=== PATIENT | female | born 1950 | race African-American/Black ===

== ENCOUNTER 2017-09-18 00:06 | Emergency (ER) | payer OTHER ==
[2017-09-18 00:29] VITALS: BMI 20.5
--- NOTE | 2017-09-18 01:08 | PDOC ---
History of Present Illness - General Chief Complaint: Headache Stated Complaint: HEADACHE Time Seen by Provider: 09/18/17 00:50 History Source: Patient Exam Limitations: No Limitations - History of Present Illness Initial Comments: 09/18/17 02:21 66F with pmh of Arnold-Chiari malformation, hemorrhagic stroke s/p craniotomy ( with cranial bones replacement 2 months ago) , LLE DVT presents with Generalized headache since friday which started as neck pain the past month. 09/18/17 02:52 Past History - Past Medical History Allergies/Adverse Reactions: Allergies Allergy/AdvReac Type Severity Reaction Status Date / Time acetaminophen [From Percocet] Allergy Verified 09/18/17 00:32 aspirin Allergy Verified 09/18/17 00:32 oxycodone [From Percocet] Allergy Verified 09/18/17 00:32 shellfish derived Allergy Verified 09/18/17 00:32 morphine AdvReac Rash Verified 09/18/17 05:19 eggs Allergy Uncoded 09/18/17 00:32 peanuts Allergy Uncoded 09/18/17 00:32 Home Medications: Ambulatory Orders NK [No Known Home Medication] 09/18/17 - Suicide/Smoking/Psychosocial Hx Smoking History: Unknown if ever smoked Have you smoked in the past 12 months: No Information on smoking cessation initiated: No Hx Alcohol Use: No Drug/Substance Use Hx: No Review of Systems - Review of Systems Able to Perform ROS?: Yes Is the patient limited Tajik proficient: No Constitutional: No: Symptoms Reported HEENTM: No: Symptoms Reported Respiratory: No: Symptoms reported Cardiac (ROS): No: Symptoms Reported ABD/GI: No: Symptoms Reported : No: Symptoms Reported Musculoskeletal: No: Symptoms Reported Integumentary: No: Symptoms Reported Neurological: Yes: Headache, Pre-Existing Deficit (left sided paralysis) Endocrine: No: Symptoms Reported All Other Systems: Reviewed and Negative *Physical Exam - Vital Signs Last Vital Signs Temp Pulse Resp BP Pulse Ox 87 14 133/82 100 09/18/17 00:26 09/18/17 00:26 09/18/17 00:26 09/18/17 00:26 - Physical Exam General Appearance: Yes: Nourished, Appropriately Dressed, Apparent Distress HEENT: positive: EOMI, REMIGIO, Normal ENT Inspection Neck: negative: Tender Respiratory/Chest: positive: Lungs Clear, Normal Breath Sounds. negative: Chest Tender, Respiratory Distress Cardiovascular: positive: Regular Rhythm, Regular Rate, S1, S2 Gastrointestinal/Abdominal: positive: Normal Bowel Sounds, Flat, Soft. negative : Tender Musculoskeletal: positive: Normal Inspection. 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, Fully Oriented, Alert, Normal Mood/ Affect ED Treatment Course - LABORATORY CBC & Chemistry Diagram: 09/18/17 01:14 09/18/17 01:14 - RADIOLOGY Radiology Studies Ordered: Category Date Time Status HEAD CT WITHOUT CONTRAST [CT] Stat CT Scan 09/18/17 01:04 Ordered CHEST X-RAY PORTABLE* [RAD] Stat Radiology 09/18/17 01:05 Ordered DUPLEX VASCUL US-2LEGS [US] Stat Ultrasound 09/18/17 01:05 Ordered Medical Decision Making - Medical Decision Making 09/18/17 06:13 66F with pmh of Arnold-Chiari malformation, hemorrhagic stroke s/p craniotomy ( with cranial bones replacement 2 months ago) , LLE DVT presents with Generalized headache since friday which started as neck pain the past month. Leg Duplex negative for DVT CT head: 5.3cm mass-like density in right frontotemporal region with surrounding encephalomalacia, correlate with MRI. Volume loss from the encephalomalacia causes minimal chronic rightward midline shift, but the mass slightly effaces frontal horn of right lateral ventricle. Right cranioplasty with underlying dural thickening/calcification. Probable small scattered parenchymal calcifications. Pain controlled with morphine. All basic labs WNL. Consulted with [facility] who knows the patient. Patient transferred to [facility]. 09/18/17 06:32 09/18/17 06:44 *DC/Admit/Observation/Transfer Diagnosis at time of Disposition: Headache - Discharge Dispostion Disposition: TRANSFER ACUTE CARE/OTHER HOSP Admit: No - Referrals Referrals: Maicol Raymundo [Primary Care Provider] - - Patient Instructions - Post Discharge Activity - Transfer to Acute Care Facility Receiving Facility: [facility]
--- NOTE | 2017-09-18 01:18 | PDOC ---
Attending Attestation - HPI HPI: 09/18/17 02:33 The patient is a 66 year old female, with a significant past medical history of Arnold-Chiari malformation, hemorrhagic stroke s/p craniotomy (with cranial bones replacement 2 months ago) , LLE DVT , who presents to the emergency department with a diffuse, constant headache for 5 days. She states she has not experienced a headache this severe in the past. She reports the headache is 10/ 10. Secondarily, she reports left lower extremity pain and states she had a DVT in the same leg [address] [facility]. She denies recent prolonged travels. She denies chest pain, shortness of breath, and dizziness. She denies fever, chills, nausea, vomit, diarrhea and constipation. She denies dysuria, frequency , urgency and hematuria. Allergies: acetominophen, aspirin, oxycodone 09/18/17 02:33 Documentation prepared by Linda George, acting as medical technologist microbiology for Ron Shah DO <Linda George - Last Filed: 09/18/17 02:50> - Resident Resident Name: Gregg Klein - ED Attending Attestation I have performed the following: I have examined & evaluated the patient, The case was reviewed & discussed with the resident, I agree w/resident's findings & plan, Exceptions are as noted - Medical Decision Making 09/18/17 19:41 Pt transfer for neurosurgical evaluation and possible treatment to [facility]. <Ron Shah - Last Filed: 09/18/17 19:42>
[2017-09-18 01:26] LABS: BASO % 0.8 % (0-2.0); EOS % 1.3 % (0-4.5); HEMATOCRIT 39.1 % (32.4-45.2); HEMOGLOBIN 12.5 GM/dL (10.7-15.3); LYMPH % 21.8 % (8-40); MCH 27.5 pg (25.7-33.7); MCHC 31.9 g/dl (32.0-36.0); MEAN CELL VOLUME 86.2 fl (80-96); MEAN PLT VOLUME 8.8 fl (7.5-11.1); MONO % 7.3 % (3.8-10.2); NEUT % 68.8 % (42.8-82.8); PLATELET COUNT 401 K/MM3 (134-434); RBC 4.54 M/mm3 (3.60-5.2); RDW 16.3 % (11.6-15.6); WHITE BLOOD COUNT 8.7 K/mm3 (4.0-10.0)
[2017-09-18 01:39] LABS: INR 1.53 (0.82-1.09); PROTHROMBIN TIME (PATIENT) 17.3 SEC (9.98-11.88)
[2017-09-18 01:42] LABS: ACTIVATED PTT 44.8 SECONDS (26.9-34.4)
[2017-09-18 01:51] LABS: ALBUMIN 3.9 g/dl (3.4-5.0); ALK PHOS 102 U/L (45-117); ANION GAP 11 (8-16); BILIRUBIN,TOTAL 0.3 mg/dL (0.2-1.0); BLOOD UREA NITROGEN 20 mg/dL (7-18); CALCIUM 9.5 mg/dL (8.5-10.1); CHLORIDE 109 mmol/L (98-107); CO2 23 mmol/L (21-32); CREATININE 1.1 mg/dL (0.55-1.02); GLUCOSE,RANDOM 124 mg/dL (74-106); POTASSIUM 3.9 mmol/L (3.5-5.1); SGOT/AST 8 U/L (15-37); SGPT/ALT 14 U/L (12-78); SODIUM 143 mmol/L (136-145); TOT PROT 7.4 g/dl (6.4-8.2)
[2017-09-18] MEDS ORDERED: morphine CARPU-JECT 4 MG/1 ML DISP.SYRIN IVPUSH ONE (03:15)
[2017-09-18] MEDS ORDERED: ONDANSETRON 4 MG/2 ML VIAL IVPUSH ONE (03:16)
[2017-09-18] MEDS ORDERED: morphine CARPU-JECT 10 MG/1 ML DISP.SYRIN ONE (04:06)
[2017-09-18] MEDS ORDERED: ONDANSETRON 4 MG/2 ML VIAL ONE (04:06)
[2017-09-18 07:57] VITALS: BP 118/74; PULSE 99; TEMP 98
[2017-09-18] MEDS ORDERED: METOCLOPRAMIDE HCL INJECTION 10 MG/2 ML VIAL IVPUSH ONE (08:32)
[2017-09-18] MEDS ORDERED: METOCLOPRAMIDE HCL INJECTION 10 MG/2 ML VIAL ONE (08:39)
== END 2017-09-18 10:07 | disposition short-term general hospital (02) ==
LOC: JER 00:06
PROC: 3E033NZ Introduction of Analgesics, Hypnotics, Sedatives into Peripheral Vein, Percutaneous Approach (ICD-10-PCS; principal; 2017-09-18)
PROC: 3E033GC Introduction of Other Therapeutic Substance into Peripheral Vein, Percutaneous Approach (ICD-10-PCS; 2017-09-18)
PROC: 3E033GC Introduction of Other Therapeutic Substance into Peripheral Vein, Percutaneous Approach (ICD-10-PCS; 2017-09-18)
PROC: 3E033GC Introduction of Other Therapeutic Substance into Peripheral Vein, Percutaneous Approach (ICD-10-PCS; 2017-09-18)
DX: G93.89 Other specified disorders of brain (principal)
CPT/HCPCS: 36415; 70450-TC; 71045-TC; 80053; 85025; 85610; 85730; 86850; 86900; 86901; 93970-TC; 99282-25

== ENCOUNTER 2018-02-16 23:17 | Emergency (ER) | payer OTHER ==
[2018-02-17 00:09] VITALS: BP 121/75; PULSE 84; TEMP 97.7; BMI 17.4
--- NOTE | 2018-02-17 01:02 | PDOC ---
History of Present Illness - General Chief Complaint: Psychiatric Stated Complaint: ANXIETY Time Seen by Provider: 02/17/18 00:20 History Source: Patient Exam Limitations: No Limitations - History of Present Illness Initial Comments: This is a 67 YOF with h/o Arnold-Chiari malformation, hemorrhagic stroke s/p craniotomy w/ cranial bone replacement in the end of 2016 with residual left- sided weakness, LLE DVT diagnosed also in the end of 2016, Xarelto use ( decreased from 20 to 10 mg/day about 2 months ago), paroxysmal A-fib, SLE, and chronic bronchitis who p/w a 20 minute episode of SOB which began at about 9:40 pm tonight while she was at rest watching TV and resolved spontaneously. She notes some mild palpitations during the episode similar to her prior episodes of A-fib. The patient notes a few prior episodes of similar SOB, but these have always been milder and resolved much more quickly then tonight. She tried her Albuterol nebulizer treatment at home without relief. She denies any chest pain , abdominal pain, new back pain, new headache, new neck pain, abdominal pain, dizziness, or change in her baseline focal numbness/tingling/weakness. Past History - Past Medical History Allergies/Adverse Reactions: Allergies Allergy/AdvReac Type Severity Reaction Status Date / Time acetaminophen [From Percocet] Allergy Verified 02/17/18 00:09 aspirin Allergy Verified 02/17/18 00:09 oxycodone [From Percocet] Allergy Verified 02/17/18 00:09 shellfish derived Allergy Verified 02/17/18 00:09 morphine AdvReac Rash Verified 02/17/18 00:09 eggs Allergy Uncoded 02/17/18 00:09 peanuts Allergy Uncoded 02/17/18 00:09 Home Medications: Ambulatory Orders Atorvastatin Calcium [Lipitor] 10 mg PO HS 02/17/18 Famotidine [Pepcid] 20 mg PO BID 02/17/18 Gabapentin 800 mg PO BID 02/17/18 Oxycodone HCl/Acetaminophen [Percocet 10-325 mg Tablet] 1 each PO PRN PRN Rivaroxaban [Xarelto -] 10 mg PO DAILY 02/17/18 CVA: Yes (Last Year Left side of body affected) COPD: No - Immunization History Immunization Up to Date: Yes - Suicide/Smoking/Psychosocial Hx Smoking History: Never smoked Have you smoked in the past 12 months: No Information on smoking cessation initiated: No Hx Alcohol Use: No Drug/Substance Use Hx: No Review of Systems - Review of Systems Able to Perform ROS?: Yes Constitutional: No: Chills, Fever, Unexplained wgt Loss HEENTM: No: Nose Congestion, Throat Pain Respiratory: Yes: Shortness of Breath. No: Cough Cardiac (ROS): Yes: Palpitations. No: Chest Pain ABD/GI: No: Constipated, Diarrhea, Nausea, Vomiting : No: Burning, Dysuria Musculoskeletal: No: Back Pain, Neck Pain Integumentary: No: Bruising, Rash Neurological: No: Headache, Numbness, Tingling, Weakness, Dizziness Endocrine: No: Unexplained Weight Gain, Unexplained Weight Loss *Physical Exam - Vital Signs Last Vital Signs Temp Pulse Resp BP Pulse Ox 97.7 F 84 19 121/75 97 02/17/18 00:04 02/17/18 00:04 02/17/18 00:04 02/17/18 00:04 02/17/18 00:04 ED Treatment Course - LABORATORY CBC & Chemistry Diagram: 02/17/18 02:58 02/17/18 02:58 Medical Decision Making - Medical Decision Making Adult female Pt p/w 20 minute episode of SOB and palpitations. Initial Vital Signs Temp Pulse Resp BP Pulse Ox 97.7 F 84 19 121/75 97 02/17/18 00:04 02/17/18 00:04 02/17/18 00:04 02/17/18 00:04 02/17/18 00:04 Exam: appears anxious but answering questions appropriately, heart and lungs and abdomen normal exams, right mormonism with well healed craniotomy scar, LUE and LLE paralysis stated chronic, left extremities are cold compared with contralateral side but distal pulses intact (although only 1+ in LUE), LLE maximum calf circumference approximately 2-3 cm larger than contralateral side also stated chronic, left extremities with skin mottling DDX IBNLT: PE, schemia (ACS), structural heart condition (MVP, mitral stenosis, atrial enlargement, HOCM), anxiety/panic, transient tachyarrhythmia (e.g. AF/ AFL w/ RVR, pSVT, re-entrant tachycardia, long QT, MAT, ventricular dysrhythmia) , ihypoxia, anemia (e.g. hemorrhage from heavy menstruation, etc), PTX, bronchitis/PNA, sepsis/shock, tamponade, metabolic (e.g. DKA, hypoglycemia), thyroid condition, catecholamine surge (e.g. pheochromocytoma), medication effect, substance use, etc. W/U ordered: Monitor EKG CXR CBCD CMP Cardiac Panel TX ordered: None at this time. The patient notes medical allergies to contrast dye with h/o anaphylaxis to this. She is not able to have chest CTA. I spoke with the patient about staying here at [facility] (admission) and possibly having V/Q scan while in the hospital. I spoke with the son about this option as well. They state they would rather go to [facility] where the patient's doctors practice from. I discuss this with her (and her son on the phone) and also the possibility of transfer to [facility] tonight. They do not want to transfer and would prefer to sign out AMA after blood work is finished. EKG: CXR: NADP Laboratory Tests 02/17/18 02/17/18 02/17/18 02:58 02:58 02:58 WBC 6.0 D RBC 4.10 Hgb 12.0 Hct 36.8 MCV 89.8 MCH 29.3 MCHC 32.6 RDW 15.5 Plt Count 284 D MPV 10.1 D Absolute Neuts (auto) 3.4 Neutrophils % 57.4 Lymphocytes % 27.4 D Monocytes % 11.1 H Eosinophils % 3.4 D Basophils % 0.7 Nucleated RBC % 0 PT with INR 11.70 INR 1.04 D Sodium Cancelled Potassium Cancelled Chloride Cancelled Carbon Dioxide Cancelled Anion Gap Cancelled BUN Cancelled Creatinine Cancelled Creat Clearance w eGFR Cancelled Random Glucose Cancelled Calcium Cancelled Magnesium Cancelled Total Bilirubin Cancelled AST Cancelled ALT Cancelled Alkaline Phosphatase Cancelled Creatine Kinase Cancelled Troponin I Cancelled B-Natriuretic Peptide Cancelled Total Protein Cancelled Albumin Cancelled Repeat VS: Reassessment: Patient does not want to stay for re-draw of CMP. She will sign out AMA and plans to f/u at [facility] with her regular providers later today. She signs the AMA form and ambulance is called to transport her back to her residence. *DC/Admit/Observation/Transfer Diagnosis at time of Disposition: Shortness of breath, Palpitation - Discharge Dispostion Disposition: AGAINST MEDICAL ADVICE Condition at time of disposition: Guarded Decision to Admit order: No - Referrals - Patient Instructions Printed Discharge Instructions: DI for Shortness of Breath Additional Instructions: You were seen in the ER for an episode of shortness of breath and palpitations. We did a partial laboratory work up on your blood, an electrocardiogram, and a chest x-ray. You decided to leave against medical advice before the workup could be completed. We talked about the possibility that something more serious could have caused your symptoms tonight, such as a blood clot in your lungs or a heart attack or another serious illness. Please follow up with your regular PCP doctor later this morning (02/17/18). Call their clinic as soon as possible, tell them you were seen in the ER, and tell them you need an appointment as soon as possible. If you have any new or worsening symptoms, especially worsening palpitations, chest discomfort, shortness of breath, sweats, nausea, loss of consciousness, or other symptoms, please come back to the ER at any time (24 hours a day). If you are having severe or life threatening symptoms, or symptoms that make it unsafe to drive or have someone drive you, please call 911. - Post Discharge Activity
--- NOTE | 2018-02-17 01:56 | PDOC ---
Attending Attestation - Resident Resident Name: Swapna Pinzon - ED Attending Attestation I have performed the following: I have examined & evaluated the patient, The case was reviewed & discussed with the resident, I agree w/resident's findings & plan, Exceptions are as noted - HPI HPI: 02/17/18 01:55 67-year-old female with a complex medical history of Chiari malformation, CVA, and DVTs had a 20 minute episode of shortness of breath at rest. She feels much better at this time and is not having any chest pain. Denies fever, chills, nausea, vomiting, diarrhea or abdominal pain - Physicial Exam PE: 02/17/18 01:55 Alert and oriented 3, 67-year-old female presents with her 88 after an episode of shortness breath. She actually doesn't feel anxious. Slender 70-year-old female in no acute distress. Head normocephalic/atraumatic. Neck no JVD is no bruits. Lungs clear to auscultation bilaterally CVS regular rate and rhythm. No rubs, no gallops. Abdomen soft, nontender, nondistended. Extremities she has a corneal left foot that she states is chronic. Her aide says that it is cool and slightly mottled at all times. Patient states that she is not having any significant pain in that extremity. Neuro alert and oriented 3, chronic left-sided weakness Skin warm and dry. Psych appropriate - Medical Decision Making 02/17/18 01:57 Plan :cardiac workup troponin, CBC, EKG, chemistry,cxr and reassess
[2018-02-17 03:25] LABS: BASO % 0.7 % (0-2.0); EOS % 3.4 % (0-4.5); HEMATOCRIT 36.8 % (32.4-45.2); LYMPH % 27.4 % (8-40); MCH 29.3 pg (25.7-33.7); MCHC 32.6 g/dl (32.0-36.0); MEAN CELL VOLUME 89.8 fl (80-96); MEAN PLT VOLUME 10.1 fl (7.5-11.1); MONO % 11.1 % (3.8-10.2); NEUT % 57.4 % (42.8-82.8); PLATELET COUNT 284 K/MM3 (134-434); RDW 15.5 % (11.6-15.6)
[2018-02-17 03:43] LABS: INR 1.04 (0.82-1.09); PROTHROMBIN TIME (PATIENT) 11.7 SEC (9.7-13.0)
--- NOTE | 2018-02-17 12:48 | EKG ---
Test Reason : Blood Pressure : / mmHG Vent. Rate : 079 BPM Atrial Rate : 079 BPM P-R Int : 156 ms QRS Dur : 064 ms QT Int : 374 ms P-R-T Axes : 055 017 037 degrees QTc Int : 428 ms NORMAL SINUS RHYTHM NORMAL ECG NO PREVIOUS ECGS AVAILABLE Confirmed by MD BRYN, PATTI ([id number]) on 02/17/2018 12:47:55 PM Referred By: Confirmed By:PATTI CLEMENTE MD
== END 2018-02-17 05:14 | disposition left against medical advice (07) ==
LOC: JER 23:17
DX: R06.02 Shortness of breath (principal); R00.2 Palpitations; I48.0 Paroxysmal atrial fibrillation; Z79.01 Long term (current) use of anticoagulants; I69.852 Hemiplegia and hemiparesis following other cerebrovascular disease affecting left dominant side; Z86.718 Personal history of other venous thrombosis and embolism; M32.9 Systemic lupus erythematosus, unspecified; J42 Unspecified chronic bronchitis; Z88.8 Allergy status to other drugs, medicaments and biological substances; Z91.018 Allergy to other foods
CPT/HCPCS: 36415; 71045-TC-FY; 85025; 85610; 93005; 93010; 99282-25

== ENCOUNTER 2018-02-21 04:25 | Emergency (ER) | payer OTHER ==
--- NOTE | 2018-02-21 04:32 | PDOC ---
History of Present Illness - General History Source: Patient Exam Limitations: No Limitations - History of Present Illness Initial Comments: 02/21/18 04:47 The patient is a 67 year old female with history of systemic lupus, atrial fibrillation, DVT, s/p CVA with residual left sided weakness, on Xarelto daily, asthma, who presents to the ED complaining of greater than 1 week of intermittent shortness of breath. The patient reports her shortness of breath is worse with lying flat, improved with sitting up, with associated chest congestion. She was seen in the ED approximately 1 week ago for similar complaints. She signed out AGAINST MEDICAL ADVICE at that time. She reports she has had intermittent symptoms since that time, now worse. The patient also reports fever of 101 yesterday. She denies nausea, vomiting, or diarrhea. She denies marcos chest pain. She denies nausea, vomiting, or diaphoresis. She denies headache, blurred vision, or new numbness or tingling. <Esha Noel - Last Filed: 02/21/18 04:46> <Chely Varner - Last Filed: 02/21/18 06:37> - General Chief Complaint: Shortness of Breath Stated Complaint: SHORTNESS OF BREATH Time Seen by Provider: 02/21/18 04:32 Past History <Esha Noel - Last Filed: 02/21/18 04:46> - Past Medical History CVA: Yes (Last Year Left side of body affected) COPD: No - Immunization History Immunization Up to Date: Yes - Suicide/Smoking/Psychosocial Hx Smoking History: Never smoked Have you smoked in the past 12 months: No Hx Alcohol Use: No Drug/Substance Use Hx: No <Chely Varner - Last Filed: 02/21/18 06:37> - Past Medical History Allergies/Adverse Reactions: Allergies Allergy/AdvReac Type Severity Reaction Status Date / Time acetaminophen [From Percocet] Allergy Verified 02/21/18 04:41 aspirin Allergy Verified 02/21/18 04:41 oxycodone [From Percocet] Allergy Verified 02/21/18 04:41 shellfish derived Allergy Verified 02/21/18 04:41 morphine AdvReac Rash Verified 02/21/18 04:41 eggs Allergy Uncoded 02/21/18 04:41 peanuts Allergy Uncoded 02/21/18 04:41 Home Medications: Ambulatory Orders Atorvastatin Calcium [Lipitor] 10 mg PO HS 02/17/18 Famotidine [Pepcid] 20 mg PO BID 02/17/18 Gabapentin 800 mg PO BID 02/17/18 Oxycodone HCl/Acetaminophen [Percocet 10-325 mg Tablet] 1 each PO PRN PRN Rivaroxaban [Xarelto -] 10 mg PO DAILY 02/17/18 Review of Systems - Review of Systems Able to Perform ROS?: Yes Comments:: 02/21/18 04:55 GENERAL/CONSTITUTIONAL: No fever or chills. No generalized weakness. HEAD, EYES, EARS, NOSE AND THROAT: No change in vision. No ear pain or discharge. No sore throat. CARDIOVASCULAR: +Shortness of breath. No chest pain or lightheadedness. RESPIRATORY: +Chest congestion. No cough, wheezing, or hemoptysis. GASTROINTESTINAL: No nausea, vomiting, diarrhea or constipation. GENITOURINARY: No dysuria, frequency, or change in urination. MUSCULOSKELETAL: No joint or muscle swelling or pain. No neck or back pain. SKIN: No rash NEUROLOGIC: +Chronic L weakness. No headache, vertigo, loss of consciousness, or acute change in strength/sensation. ENDOCRINE: No increased thirst. No abnormal weight change. HEMATOLOGIC/LYMPHATIC: +History of DVT. No anemia, easy bleeding. ALLERGIC/IMMUNOLOGIC: No hives or skin allergy. <Esha Noel - Last Filed: 02/21/18 04:46> *Physical Exam - Vital Signs Last Vital Signs Temp Pulse Resp BP Pulse Ox 97.6 F 68 19 118/64 99 02/21/18 04:30 02/21/18 04:30 02/21/18 04:30 02/21/18 04:30 02/21/18 04:30 - Physical Exam Comments: 02/21/18 04:56 GENERAL: Awake, alert, and fully oriented, in no acute distress HEAD: No signs of trauma EYES: PERRLA, EOMI, sclera anicteric, conjunctiva clear ENT: Auricles normal inspection, nares patent. Moist mucosa NECK: Normal ROM, supple, no JVD, or masses LUNGS: Breath sounds equal, clear to auscultation bilaterally. No wheezes, and no crackles HEART: Regular rate and rhythm, normal S1 and S2, no murmurs, rubs or gallops ABDOMEN: Soft, nontender, normoactive bowel sounds. No guarding, no rebound. No masses EXTREMITIES: Normal range of motion, no edema. No clubbing or cyanosis. No cords, erythema, or tenderness NEUROLOGICAL: Alert and oriented x 3. Face is symmetric. Gait deferred. SKIN: Warm, Dry, normal turgor, no rashes or lesions noted. <Esha Noel - Last Filed: 02/21/18 04:46> ED Treatment Course - LABORATORY CBC & Chemistry Diagram: 02/21/18 05:08 02/21/18 05:08 <Chely Varner - Last Filed: 02/21/18 06:37> Medical Decision Making - Medical Decision Making 02/21/18 06:28 PT presents to the ED Complaining of intermittent shortness of breath and non productive cough. Denies fevers or chest pain. Seen in the ED yesterday, plan was for CT to evaluate for PE given patient's history of lupus, but patient has contrast allergy and refused VQ. Lungs are clear, but given history of asthma will treat with duonebs and see if she has improvement. Cxr shows no evidence of PNA. EKg and cardiac profile are normal, so ACS is less likely. Given history of DVT and lupus, PE was in the differential despite xarelto use. Patient refused V Q on her previous visit and cannot have CT PE secondary to contrast allergy. She is low risk for PE given her xarelto use. Will discharge home if feels improved after nebs. <Chely Varner - Last Filed: 02/21/18 06:37> *DC/Admit/Observation/Transfer - Attestations Scribe Attestion: 02/21/18 04:58 Documentation prepared by Esha Noel, acting as emergency medical service coordinator for Chely Varner MD. <Esha Noel - Last Filed: 02/21/18 04:46> <Chely Varner - Last Filed: 02/21/18 06:37> - Discharge Dispostion Condition at time of disposition: Fair
[2018-02-21 04:49] VITALS: TEMP 97.6; BMI 17.0
[2018-02-21 05:43] LABS: BASO % 0.3 % (0-2.0); EOS % 3.6 % (0-4.5); HEMATOCRIT 35.4 % (32.4-45.2); HEMOGLOBIN 11.4 GM/dL (10.7-15.3); LYMPH % 37.3 % (8-40); MCHC 32.2 g/dl (32.0-36.0); MEAN CELL VOLUME 90.2 fl (80-96); MEAN PLT VOLUME 9.6 fl (7.5-11.1); MONO % 12.2 % (3.8-10.2); NEUT % 46.6 % (42.8-82.8); PLATELET COUNT 258 K/MM3 (134-434); RBC 3.93 M/mm3 (3.60-5.2); RDW 14.9 % (11.6-15.6); WHITE BLOOD COUNT 4.1 K/mm3 (4.0-10.0)
[2018-02-21 06:08] LABS: ANION GAP 5 (8-16); BLOOD UREA NITROGEN 14 mg/dL (7-18); CALCIUM 8.5 mg/dL (8.5-10.1); CHLORIDE 109 mmol/L (98-107); CO2 30 mmol/L (21-32); GLUCOSE,RANDOM 104 mg/dL (74-106); POTASSIUM 3.9 mmol/L (3.5-5.1); SGOT/AST 10 U/L (15-37); SGPT/ALT 18 U/L (12-78); SODIUM 144 mmol/L (136-145)
[2018-02-21 06:11] LABS: ALK PHOS 71 U/L (45-117); BILIRUBIN,TOTAL 0.2 mg/dL (0.2-1.0); TOT PROT 5.9 g/dl (6.4-8.2)
[2018-02-21] MEDS ORDERED: ALBUTEROL SO4 2.5/IPRATROPIUM 0.5 INH SOL 3 ML VIAL.NEB. NEB ONE (06:23)
--- NOTE | 2018-02-21 08:15 | PDOC ---
*Physical Exam - Vital Signs Last Vital Signs Temp Pulse Resp BP Pulse Ox 97.6 F 68 19 118/64 99 02/21/18 04:30 02/21/18 04:30 02/21/18 04:30 02/21/18 04:30 02/21/18 04:30 ED Treatment Course - LABORATORY CBC & Chemistry Diagram: 02/21/18 05:08 02/21/18 05:08 - ADDITIONAL ORDERS Additional order review: Laboratory Results 02/21/18 02/21/18 05:08 05:08 D-Dimer 400 Sodium 144 Potassium 3.9 Chloride 109 H Carbon Dioxide 30 Anion Gap 5 L BUN 14 Creatinine 1.0 Creat Clearance w eGFR 55.30 Random Glucose 104 Calcium 8.5 Total Bilirubin 0.2 D AST 10 L ALT 18 Alkaline Phosphatase 71 Creatine Kinase 62 Troponin I < 0.02 Total Protein 5.9 L Albumin 3.0 L 02/21/18 05:08 RBC 3.93 MCV 90.2 MCHC 32.2 RDW 14.9 MPV 9.6 Neutrophils % 46.6 Lymphocytes % 37.3 D Monocytes % 12.2 H Eosinophils % 3.6 Basophils % 0.3 - Medications Given in the ED: ED Medications Discontinued Medications Generic Name Dose Route Start Last Admin Trade Name Freq PRN Reason Stop Dose Admin Albuterol/Ipratropium 1 amp 02/21/18 06:23 02/21/18 06:41 Duoneb - NEB 02/21/18 06:24 1 amp ONCE ONE Administration Medical Decision Making - Medical Decision Making 02/21/18 08:08 I received this patient on sign out Plan was to assess s/p Neb treatment This is her second visit to the ER for shortness of breath D dimer 400 Pt states she feels well I will ask her to follow up with Pulmonology (Dr Thomas) in the office She would like to follow up with Dr Leobardo Raymundo (manages her Xeralto) clinical Impression: shortness of breath, initial presentation *DC/Admit/Observation/Transfer Diagnosis at time of Disposition: Shortness of breath - Discharge Dispostion Disposition: HOME Condition at time of disposition: Stable Decision to Admit order: No - Referrals - Patient Instructions Printed Discharge Instructions: DI for Shortness of Breath Additional Instructions: Ms Miranda thank so much for coming in to the ER today! Please monitor for fevers, chills, any other concerns or complaints Please follow up with your primary care physician Please return to the ER for any other concerns or complaints - Post Discharge Activity
[2018-02-21 08:41] VITALS: BP 120/72; PULSE 71
--- NOTE | 2018-02-21 14:37 | EKG ---
Test Reason : Blood Pressure : / mmHG Vent. Rate : 062 BPM Atrial Rate : 062 BPM P-R Int : 150 ms QRS Dur : 076 ms QT Int : 390 ms P-R-T Axes : 059 016 029 degrees QTc Int : 395 ms NORMAL SINUS RHYTHM NORMAL ECG WHEN COMPARED WITH ECG OF 17-FEB-2018 04:37, NO SIGNIFICANT CHANGE WAS FOUND Confirmed by MD Childs Daniel ([id number]) on 02/21/2018 2:36:43 PM Referred By: Confirmed By:Dave Childs MD
== END 2018-02-21 08:42 | disposition home or self-care (01) ==
LOC: JER 04:25
PROC: 3E0F7GC Introduction of Other Therapeutic Substance into Respiratory Tract, Via Natural or Artificial Opening (ICD-10-PCS; principal; 2018-02-21)
DX: R06.02 Shortness of breath (principal)
CPT/HCPCS: 36415; 71045-TC-FY; 80053; 82550; 84484; 85025; 85379; 93005; 93010; 99284-25; J7620

== ENCOUNTER 2018-09-07 18:47 | Emergency (ER) | payer OTHER ==
[2018-09-07 19:15] VITALS: BP 128/61; PULSE 79; TEMP 97.6; BMI 20.3
[2018-09-07] MEDS ORDERED: diphenhydrAMINE HCL 25 MG CAPSULE (FP) PO ONE ×2 (19:45→19:58)
--- NOTE | 2018-09-07 19:46 | PDOC ---
History of Present Illness - General Chief Complaint: Allergic Reaction Stated Complaint: ALLERGIC REACTION Time Seen by Provider: 09/07/18 19:27 History Source: Patient Exam Limitations: No Limitations - History of Present Illness Initial Comments: 67 yo F w a pmh of lupus, dvt on xarelto, CVA with residual right sided hemiplegia, AFIB, newly diagnosed diabetes presents to the ER with what she says is an allergic reaction. She states she started taking Januvia and metformin for her diabetes and she believes she is having an allergic reaction to these meds. She has been taking these meds for nearly two weeks and the allergic reactions have been on and off every day, but today the reaction was significantly worse and she has been experiencing diffuse pruritus and a rash on her arms and shoulders. She says yesterday the rash was also on her back but is no longer there today. She is not currently experiencing any shortness of breath or difficulty breathing. She denies currently having any chest pain, back pain, neck pain, recent fevers , chills, infections, dysuria, frequency, urgency. Allergies: Aspirin, Shellfish, morphine, eggs, contrast dye, multiple detergents. PCP: Edgar raymundo PSH: Craniotomy, exploratory laparotomy. Social Hx: Denies currently smoking, drinking, or other illicit drug usage. Past History - Past Medical History Allergies/Adverse Reactions: Allergies Allergy/AdvReac Type Severity Reaction Status Date / Time aspirin Allergy Verified 02/21/18 04:41 shellfish derived Allergy Rash Verified 09/07/18 19:45 morphine AdvReac Rash Verified 02/21/18 04:41 peanuts Allergy Severe Rash Uncoded 09/07/18 19:45 eggs Allergy Rash Uncoded 09/07/18 19:45 Home Medications: Ambulatory Orders Atorvastatin Calcium [Lipitor] 10 mg PO HS 02/17/18 Gabapentin 800 mg PO BID 02/17/18 Oxycodone HCl/Acetaminophen [Percocet 10-325 mg Tablet] 1 each PO PRN PRN Rivaroxaban [Xarelto -] 10 mg PO DAILY 02/17/18 CVA: Yes (Last Year Left side of body affected) COPD: No - Immunization History Immunization Up to Date: Yes - Suicide/Smoking/Psychosocial Hx Smoking History: Never smoked Have you smoked in the past 12 months: No Information on smoking cessation initiated: No Hx Alcohol Use: No Drug/Substance Use Hx: No Review of Systems - Review of Systems Able to Perform ROS?: Yes Comments:: CONSTITUTIONAL: Absent: fever, no chills, no fatigue EYES: Absent: visual changes ENT: Absent: ear pain, no sore throat CARDIOVASCULAR: Absent: chest pain, no palpitations RESPIRATORY: Absent: cough, no SOB GI: Absent: abdominal pain, no nausea, no vomiting, no constipation, no diarrhea GENITOURINARY: Absent: dysuria, no frequency, no hematuria MUSKULOSKELETAL: Absent: back pain, no arthralgia, no myalgia SKIN: Present: rash NEURO: Absent: headache *Physical Exam - Vital Signs Last Vital Signs Temp Pulse Resp BP Pulse Ox 97.6 F 79 16 128/61 98 09/07/18 19:02 09/07/18 19:02 09/07/18 19:02 09/07/18 19:02 09/07/18 19:02 - Physical Exam Comments: GENERAL: Well-appearing, well-nourished. No apparent distress. HEENT: Normocephalic, atraumatic. PERRL, EOM intact. CARDIOVASCULAR: Normal S1, S2. Regular rate and rhythm. PULMONARY: Clear to auscultation bilaterally. ABDOMEN: Soft, non-distended, non-tender. EXTREMITIES: Normal ROM in right extremities. Patient is hemiplegic and cannot move her left arm or leg. SKIN: Warm, dry and cracked on right hand. There are multiple macular rashes on both arms and the left shoulder which blanches on palpation. NEUROLOGICAL: Patient has no sensation or strength in the right arm and leg. Moderate Sedation - Procedure Monitoring Vital Signs: Procedure Monitoring Vital Signs Temperature 97.6 F 09/07/18 19:02 Pulse Rate 79 09/07/18 19:02 Respiratory Rate 16 09/07/18 19:02 Blood Pressure 128/61 09/07/18 19:02 O2 Sat by Pulse Oximetry (%) 98 09/07/18 19:02 Medical Decision Making - Medical Decision Making 67 yo F w a pmh of lupus, dvt on xarelto, CVA with residual right sided hemiplegia, AFIB, newly diagnosed diabetes presents to the ER with what she says is an allergic reaction. DDx IBNLT: Allergic reaction, anaphylaxis, KOREY Plan: Benadryl, zantac re-assess. Patient is well appearing and has no symptoms to suggest this is anything more than a basic allergic reaction. I do not suspect anaphylaxis as her BP is normotensive and she is not in any respiratory distress. - If the benadryl and zantac do not relieve her symptoms we will give steroids. Gave patient 40 mg of prednisone and advised her to stop taking her Januvia and metformin. Also gave her number for [facility] Rod[facility] to have an program manager rn to manage her diabetes. *DC/Admit/Observation/Transfer Diagnosis at time of Disposition: Allergic reaction caused by a drug - Discharge Dispostion Disposition: HOME Condition at time of disposition: Stable Decision to Admit order: No - Referrals Referrals: Maicol Raymundo [Primary Care Provider] - Hector Hastings MD [Staff Physician] - Santiago Rodríguez MD [Staff Physician] - - Patient Instructions Printed Discharge Instructions: DI for Adverse Drug Reaction -- Allergic Additional Instructions: You came into the ER with itchiness from the diabetic medications. We believe you are having an allergic reaction to these medications. It is important that you stop taking these medications and schedule an appointment with an program manager rn to figure out how to best manage your diabetes. We have given you the number for Dr. Henderson who you can call and schedule an appointment with. Come back to the ER if your itchiness worsens, you start having any shortness of breath or difficulty breathing, or have any other new or worsening concerns. Thank you for coming to the [facility] ER. We hope you feel better soon! Print Language: GUAMANIAN - Post Discharge Activity
[2018-09-07] MEDS ORDERED: RANITIDINE HCL 150 MG TABLET (FP) PO ONE (19:56)
[2018-09-07] MEDS ORDERED: RANITIDINE HCL 150 MG TABLET (FP) ONE (19:59)
[2018-09-07] MEDS ORDERED: predniSONE 20 MG TABLET (UD) PO ONE (20:30)
--- NOTE | 2018-09-07 20:30 | PDOC ---
Attending Attestation - Resident Resident Name: Joseph Ortega - ED Attending Attestation I have performed the following: I have examined & evaluated the patient, The case was reviewed & discussed with the resident, I agree w/resident's findings & plan, Exceptions are as noted - HPI HPI: 09/07/18 20:25 67-year-old female patient with past medical history of DVT on Xarelto, lupus, stroke with right-sided mild deficit, atrial fibrillation, diabetes presents with ALLERGIC reaction. Patient has multiple drug ALLERGIES. The patient was recently diagnosed with diabetes 2 weeks ago was started on Januvia and metformin. Since then, the patient is noticed urticaria along the upper and lower extremities. Denies short of breath, changes in voice, throat swelling, facial swelling, nausea, vomiting, diarrhea, chest pain or shortness of breath. Patient is noticed that the symptoms worsen after she takes the pills. Because last night was worse, she came to the ER for further outpatient. - Physicial Exam PE: 09/07/18 20:26 GENERAL: Awake, alert, and fully oriented, in no acute distress HEAD: No signs of trauma EYES: PERRLA, EOMI, sclera anicteric, conjunctiva clear ENT: Auricles normal inspection, hearing grossly normal, nares patent, oropharynx clear without exudates. Moist mucosa NECK: Normal ROM, supple EXTREMITIES: Normal range of motion, no edema. No clubbing or cyanosis. No cords, erythema, or tenderness NEUROLOGICAL: Cranial nerves II through XII grossly intact. Normal speech, normal gait SKIN: Diffuse urticaria along the upper and lower extremities. - Medical Decision Making 09/07/18 20:28 Vital Signs Temp Pulse Resp BP Pulse Ox 97.6 F 79 16 128/61 98 09/07/18 19:02 09/07/18 19:02 09/07/18 19:02 09/07/18 19:02 09/07/18 19:02 Pt is experiencing an allergic reaction (urticaria) from likely metformin and/ or januvia. Pt instructed to stop taking the medications. Will given benadryl and zantac and reassess. If symptoms persistent after taking meds, start prednisone and allow pt to go home with these medications and follow up with an metal fitters and machinists and regional director.
[2018-09-07] MEDS ORDERED: predniSONE 20 MG TABLET (UD) ONE (20:34)
== END 2018-09-07 23:01 | disposition home or self-care (01) ==
LOC: JER 18:47
DX: T38.3X5A Adverse effect of insulin and oral hypoglycemic [antidiabetic] drugs, initial encounter (principal); R21 Rash and other nonspecific skin eruption; I48.91 Unspecified atrial fibrillation; Z79.01 Long term (current) use of anticoagulants; Z86.718 Personal history of other venous thrombosis and embolism; I69.851 Hemiplegia and hemiparesis following other cerebrovascular disease affecting right dominant side; Z87.39 Personal history of other diseases of the musculoskeletal system and connective tissue
CPT/HCPCS: 99284-25